=== PATIENT | female | born 1975 ===

== ENCOUNTER 2019-09-16 19:00 | Emergency (ER) | payer SELFPAY ==
[2019-09-16 19:07] VITALS: BP 146/90; PULSE 80; RESP 18; TEMP 37; O2SAT 95; BMI 22.4
--- NOTE | 2019-09-16 19:23 | ED_ITS ---
HPI - Headache General: Chief Complaint: Headache Stated Complaint: HEADACHE/FALL Time Seen by Provider: 09/16/19 19:21 History of Present Illness: HPI Narrative: Patient says she slipped and fell and hit her head on the toilet denies loss of consciousness but now has a headache and she has history of migraines but she said this headache is different she denies any nausea vomiting dizziness ambulation problems. But she said the headache is not getting better does complain of bruising to her face where she struck her head MD elicited complaint: headache Onset (ago): day(s) Severity: mild Context: other (After falling and striking the toilet) Associated symptoms: Deny chest pain, fever(s), nausea, rash or vomiting Review of Systems Const: Denies: fever(s), chills or body aches Eyes: Denies: change in vision or blurry vision ENMT: Denies: throat pain or nasal congestion Card: Denies: chest pain or dyspnea on exertion Resp: Denies: dyspnea, productive cough or non-productive cough GI: Denies: abdominal pain, nausea or vomiting Musc: Denies: extremity pain Skin/Breast: Denies: rash Neuro: Reports: headache(s) Psych: Denies: anxiety or depression Guero/Lymph: Denies: easy bruising [facility] ED Female Reproductive History: Date of last menstrual period: 09/04/19 Physical Exam Const: COMMON NORMALS: no acute distress, average body habitus and patient oriented x3 HENMT: COMMON NORMALS: normocephalic HEAD & SCALP: normal to inspection and normocephalic FACE & SINUS: normal facial exam Eye: COMMON NORMALS: conjunctivae normal GENERAL EYE: appearance normal, both eyes and all related structures CONJUNCTIVA: Yes conjunctivae normal Neck/C-Spine: COMMON NORMALS: no JVD Chest: COMMONS NORMALS: normal inspection of the chest Resp: COMMON NORMALS: normal respiratory effort and clear to auscultation bilaterally AUSCULTATION: clear to auscultation bilaterally Cardio: COMMON NORMALS: no JVD, regular rate and regular rhythm RATE: re gular rate RHYTHM: regular rhythm GI: COMMON NORMALS: Normal to inspection, nondistended, normoactive bowel sounds present Extremity: COMMON NORMALS: normal to inspection and full ROM Neuro: COMMON NORMALS: patient oriented x3, CN's II-XII intact bilaterally, moves all extremities and no focal motor deficits Skin: NARRATIVE SKIN EXAM: Patient has bruising to the forehead to the nasal bridge area and down below the eyes where she struck the toilet. Course Vital Signs: Vital signs: Vital Signs Temperature 98.6 F 09/16/19 19:07 Pulse Rate 80 09/16/19 19:07 Respiratory Rate 18 09/16/19 19:07 Blood Pressure 146/90 09/16/19 19:07 Pulse Oximetry 95 09/16/19 19:07 Coding Level of Care Code ED Managed Care Liaison for Mitch Paez
--- NOTE | 2019-09-16 19:23 | CTR_ITS ---
PROCEDURE INFORMATION: Exam: CT Head Without Contrast Exam date and time: 09/16/2019 7:26 PM Age: 43 years old Clinical indication: Injury or trauma; Fall; Initial encounter; Blunt trauma (contusions or hematomas); Without loss of consciousness; Patient HX: Fell in bathroom 09/10 hitting toilet - denies loc bruise to forehead C/O worsening [place] since TECHNIQUE: Imaging protocol: Computed tomography of the head without contrast. Radiation optimization: All CT scans at this facility use at least one of these dose optimization techniques: automated exposure control; mA and/or kV adjustment per patient size (includes targeted exams where dose is matched to clinical indication); or iterative reconstruction. COMPARISON: No relevant prior studies available. RADIATION DOSE METRICS: Total DLP (mGy-cm): 704.78 FINDINGS: Brain: Normal. No hemorrhage. Unremarkable white matter. No mass effect. Ventricles: Normal. No ventriculomegaly. Bones/joints: Ventriculostomy tube is in through the bilateral parietal calvarium terminating near midline in the region of the lateral ventricles. There changes across the temporomandibular joints. Sinuses: Visualized sinuses are unremarkable. No fluid levels. Mastoid air cells: Visualized mastoid air cells are well aerated. Soft tissues: Unremarkable. CT/CT head wo con* [id number] IMPRESSION: No acute findings.Non acute findings as described above. Radiation Dose CTDIVOL = (mGy): DLP = 704.78 (mGy-cm)
[2019-09-16 19:27] VITALS: BP 155/97; PULSE 70; RESP 16; O2SAT 98
[2019-09-16] MEDS: TRAMadol 50 mg Tablet 100 MG PO (19:49)
== END 2019-09-16 19:52 | disposition home or self-care (01) ==
PROVIDERS: Emergency Provider Nurse Practitioner Family; PCP Family Medicine
DX: R51 Headache (principal)
CPT/HCPCS: 12345; 70450; 99281; 99283

== ENCOUNTER → 2023-06-12 15:06 | Outpatient (BNVA) | payer OTHER, SELFPAY | PROVIDERS: PCP Family Medicine; Visit Provider Emergency Medicine | DX: R39.9 Unspecified symptoms and signs involving the genitourinary system (principal) | CPT/HCPCS: 81000 ==